=== PATIENT | female | born 1950 | race Caucasian/White ===

== ENCOUNTER 2020-07-01 11:19 | Outpatient (CLI) | payer MEDICARE, OTHER, SELFPAY ==
--- NOTE | 2020-07-01 11:26 | MM_ITS ---
WS: [id number] BILATERAL DIGITAL SCREENING MAMMOGRAPHY WITH CAD CLINICAL INFORMATION: SCREENING HISTORY: Screening mammogram. No current complaints. COMPARISON: TECHNIQUE: Bilateral CC and MLO views. FINDINGS: The breasts are composed of heterogeneous fibroglandular density tissue, which can limit the detectio n of small underlying mass lesions. No suspicious mass, asymmetry, calcifications, or architectural d istortion. No evidence of malignancy. 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 Bilateral vascular and punctate calcifications. MM/[place] [id number] IMPRESSION: BI-RADS: 2-Benign FOLLOW UP: 1 Year Follow-up Recommend return to annual screening mammography.
== END 2020-07-01 11:20 | disposition home or self-care (01) ==
LOC: RADSHAW 11:24
PROVIDERS: PCP Family Medicine; Visit Provider Family Medicine
DX: Z12.31 Encounter for screening mammogram for malignant neoplasm of breast (principal)
CPT/HCPCS: 77067

== ENCOUNTER 2020-07-05 07:50 | Outpatient (CLI) | payer MEDICARE, OTHER, SELFPAY ==
--- NOTE | 2020-07-05 08:00 | USCV_ITS ---
Dea Shetty Age: 69 Gender: F : 1950 Exam Date: 07/05/2020 08:08 Ordering Phys: Miquel Cespedes MD Technologist: Mayela Lozano Exam Location: [facility] [place] Indication: SOB BP: 140 / 70 HR: 77 Rhythm: Sinus Technical Quality: Adequate MEASUREMENTS (Male / Female) Normal Values 2D ECHO LV Diastolic Diameter PLAX 4.1 cm 4.2 - 5.9 / 3.9 - 5.3 cm LV Systolic Diameter PLAX 2.6 cm LV Chamber Size 4.2 cm IVS Diastolic Thickness 0.9 cm 0.6 - 1.0 / 0.6 - 0.9 cm IVS Systolic Thickness 1.2 cm LVPW Diastolic Thickness 0.9 cm 0.6 - 1.0 / 0.6 - 0.9 cm LVPW Systolic Thickness 1.1 cm RV Chamber Size 2.1 cm LVOT Diameter 2.0 cm LV Ejection Fraction 2D Teich 67.2 % LV Ejection Fraction MOD 2C 62.0 % LV Ejection Fraction 2C AL 63.9 % LA Diameter 2.9 cm LA Width 2.8 cm LA Height 2.4 cm RA Width 2.7 cm RA Height 3.0 cm Aorta at Sinotubular Diameter 2.9 cm M-MODE LV Diastolic Diameter MM 4.2 cm 4.2 - 5.9 / 3.9 - 5.3 cm LV Systolic Diameter MM 2.7 cm LV Ejection Fraction MM Teich 66.1 % IVS Diastolic Thickness MM 0.6 cm 0.6 - 1.0 / 0.6 - 0.9 cm IVS Systolic Thickness MM 0.9 cm LVPW Diastolic Thickness MM 0.9 cm 0.6 - 1.0 / 0.6 - 0.9 cm LVPW Systolic Thickness MM 1.1 cm RV Diastolic Diameter MM 1.3 cm Aortic Annulus Diameter 2.0 cm LA Ao Ratio MM 1.5 MV E Point Septal Separation 0.4 cm DOPPLER AV Peak Velocity 103.0 cm/s LVOT Peak Velocity 78.0 cm/s AV Area Cont Eq vti 2.4 cm squared AV Area Cont Eq pk 2.3 cm squared MV Area PHT 3.7 cm squared Mitral E to A Ratio 0.8 MV E' Velocity 7.0 cm/s Mitral E to MV E' Ratio 11.9 Mitral E to LV E' Lateral Ratio 12.0 Mitral E to LV E' Septal Ratio 11.9 TR Peak Velocity 52.0 cm/s TR Peak Gradient 1.1 mmHg TR Mean Velocity 207.0 cm/s TR Mean Gradient 18.3 mmHg TR Velocity Time Integral 77.6 cm Right Atrial Pressure 3.0 mmHg Pulmonary Artery Systolic Pressu 4.1 mmHg PV Peak Velocity 53.0 cm/s RV Acceleration Time 0.1 s RV Ejection Time 0.3 s RV AcT/ET 0.3 FINDINGS Left Ventricle Normal left ventricular size, systolic function and wall thickness, with no regional wall motion abnormalities. Normal left ventricular wall thickness. Grade 1 diastolic dysfunction is present. Right Ventricle The right ventricle is normal in size and function. Right Atrium The right atrium is normal in size. Left Atrium The left atrium is normal in size. Mitral Valve Structurally normal mitral valve without significant stenosis or prolapse. There is no mitral regurgitation. Aortic Valve Structurally normal aortic valve without significant sclerosis or stenosis. There is no aortic regurgitation. Tricuspid Valve Structurally normal tricuspid valve without significant stenosis or regurgitation. Insufficient TR jet to calculate RVSP. RA pressure is 5 mmHg. Pulmonic Valve Structurally normal pulmonic valve without significant stenosis. There is no pulmonic regurgitation. Pericardium Normal pericardium without effusion. Aorta Normal ascending aorta dimension. CONCLUSIONS Normal systolic function with EF of 55 to 60%. Grade 1 diastolic dysfunction is present. Jasbir Monet MD (Electronically Signed) Final Date: 05 July 2020 11:46 S
== END 2020-07-05 07:51 | disposition home or self-care (01) ==
PROVIDERS: PCP Family Medicine; Visit Provider Internal Medicine Critical Care Medicine
DX: R06.02 Shortness of breath (principal); I51.81 Takotsubo syndrome
CPT/HCPCS: 93306

== ENCOUNTER 2021-05-19 08:53 | Outpatient (CLI) | payer MEDICARE, SELFPAY ==
[2021-05-19 08:57] VITALS: BP 150/72; PULSE 70; RESP 18; TEMP 36.8; O2SAT 91; BMI 24.0
--- NOTE | 2021-05-19 09:02 | A.OFFVIS_ITS ---
Patient Information Referred by: 70-year-old female who had a positive Covid test in outside facility she has a history of COPD. She is not currently on any oxygen and she is not requiring extra oxygen at this time. She is mildly symptomatic. On exam chest clear heart regular. Patient is maintaining sats in the 90 to 92% on the monitor at the bedside. Discussed risk benefits alternatives with the patient she wishes to proceed. Monoclonal antibody infusion ordered patient tolerated well. Discharged home in good condition Symptom onset date: 05/11/21 COVID 19 common symptoms: positive fever(s), chills, cough, non-productive cough and dyspnea COVID 19 other sytmptoms: negative requiring oxygen Severity: mild Treatment prior to arrival: acetaminophen and ibuprofen OZH COVID test results: No Data to Display Criteria/Plan Inclusion/Exclusion Criteria lkhlkh weight >/= 40kg and + direct test </= 10 days ago age >/= 65 and age >/= 55 and has COPD/lung diease not requiring hospitalization, not requiring oxygen (if not chronically on oxygen) and no increase oxygen requirement (if chronically on oxygen) Patient education patient/family/caregiver received/reviewed fact sheet, Emergency Use Author ization/unapproved drug status discussed with patient/family/caregiver, alternatives to this treatment discussed with patient/family/caregiver, risks and benefits of medication reviewed with patient/family/caregiver, patient/family/caregiver given opportunity for questions, which were answered and patient consents to receiving Monoclonal Antibody Treatment Plan for treatment Meets criteria for Monoclonal Antibody infusion Ordering Monoclonal Antibody infusion for today
--- NOTE | 2021-05-19 11:08 | PC.NURSE ---
patient is resting, no acute distress noted at this time.
[2021-05-19 12:18] VITALS: BP 149/81; PULSE 70; RESP 18; TEMP 36.9; O2SAT 90
--- NOTE | 2021-05-19 12:19 | PC.NURSE ---
patient stated felt better, no acute distress noted.
== END 2021-05-19 12:19 | disposition home or self-care (01) ==
LOC: ER 08:56
PROVIDERS: PCP Family Medicine; Visit Provider Family Medicine
DX: U07.1 COVID-19 (principal); J44.9 Chronic obstructive pulmonary disease, unspecified
CPT/HCPCS: 96365

== ENCOUNTER 2021-06-22 08:47 | Emergency (ER) | payer MEDICARE, SELFPAY ==
[2021-06-22 08:48] VITALS: BP 187/93; PULSE 102; RESP 16; TEMP 36.6; O2SAT 100; BMI 20.5
--- NOTE | 2021-06-22 09:25 | ECG_ITS ---
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 Measurements Intervals [place] Rate: 97 P: 86 [place]: 147 QRS: 81 QRSD: 98 T: 67 QT: 370 QTc: 472 Interpretive Statements SINUS RHYTHM POSSIBLE LEFT ATRIAL ENLARGEMENT [-0.1mV P WAVE IN V1/V2] No previous ECG available for comparison Electronically Signed On 06-23-2021 14:46:46 CDT by Celestine Grace M.D. [id number]
--- NOTE | 2021-06-22 09:25 | CT_ITS ---
WS: [id number] CT HEAD TECHNIQUE: Noncontrast CT of the head obtained from the skullbase to the vertex. CLINICAL INFORMATION: confusion COMPARISON: MRI 2018 DLP: 814.[address] scans at [facility] use at least one of these dose optimization techniques: automat ed exposure control; mA and/or kV adjustment per patient size (includes targeted exams where dose is matched to clinical indication); or iterative reconstruction. FINDINGS: No evidence of intracranial hemorrhage or mass effect. Ventricular system and basal cisterns are arora nt. Mild small vessel changes with mild to moderate parenchymal volume loss. No extra-axial fluid col lections. No evidence of mass or mass effect. Normal boyer-white differentiation. Paranasal sinuses and mastoid air cells are well aerated. Trace fluid in the sphenoid sinus. .Normal visualized soft tissues. CT/CT head wo con* [id number] IMPRESSION: 1. No evidence of intracranial hemorrhage or mass effect. 2. Mild small vessel changes with mild/moderate parenchymal volume loss. 3. Trace fluid in the sphenoid sinus. 4. No acute intracranial findings.
--- NOTE | 2021-06-22 09:26 | ED_ITS ---
Documented by User: KEELY Rome 06/22/21 16:51 HPI - Psych General: Chief Complaint: Psychiatric Symptoms Stated Complaint: psych eval/ paranoia Time Seen by Provider: 06/22/21 09:05 History of Present Illness: HPI Narrative: Patient is a 70-year-old female comes to the ED with psych eval and paranoia. Patient lives at home alone and states that she has 2 neighbors that are drug dealers and they are spying on her. She states that they have tapped into her iPad and cell phone. She also reports that there is been a van that was following her yesterday. She did not have any sleep last night. I talked to patient's son which was her preferred contact next of kin. His name is Rick Shetty and I asked him some questions about his mother's mental status. The son said that how patient is acting over the last 24 hours is not typical for her. He says she thinks something is wrong with her and she has no history of any psychosis in the past. Patient did get hospitalized back in the early after her for depression. Associated symptoms: Reports delusions Review of Systems Const: Denies: fever(s), chills or fatigue Eyes: Denies: change in vision or eye discomfort ENMT: Denies: throat pain, odynophagia, nasal discharge or nasal congestion Card: Denies: chest pain, palpitations, edema, swelling of feet/ankles, dyspnea on exertion or orthopnea Resp: Denies: dyspnea, productive cough or non-productive cough GI: Denies: abdominal pain, nausea, vomiting, diarrhea, constipation or hematochezia : Denies: flank pain, dysuria or hematuria Musc: Denies: neck pain, back pain or extremity swelling Skin/Breast: Denies: rash or new lesions Neuro: Reports: confusion; Denies: headache(s), numbness in extremities or weakness in extremities Psych: Reports: sleeping less and paranoia PFSH ED PFSH: Medical History Chronic cystitis Mixed axonal-demyelinating neuropathy Thrombocytosis Surgical History H/O oral surgery H/O wrist surgery Family History Father Stroke Heart disease Hypercholesterolemia Hypertension Mother Psychiatric illness Diabetes Heart disease Social History Smoking and tobacco status: never smoked Second hand smoke exposure: Yes Alcohol intake: never Lives independently: Yes Household members: none Marital status: / Current occupational status: unemployed History of recent travel: No Current gender identity: Female Physical Exam Const: COMMON NORMALS: no acute distress, patient oriented x3, healthy appearing and alert GENERAL APPEARANCE: cooperative and comfortable HENMT: COMMON NORMALS: normocephalic HEAD & SCALP: normocephalic MOUTH: Normal oral and palatal mucosa present THROAT: posterior oropharynx normal and uvula midline Neck/C-Spine: COMMON NORMALS: supple GENERAL: Yes normal visual inspection Resp: COMMON NORMALS: normal respiratory effort, No retractions, No use of accessory muscles and clear to auscultation bilaterally AUSCULTATION: clear to auscultation bilaterally Cardio: COMMON NORMALS: regular rate, regular rhythm, S1 normal heart sound present, S2 normal heart sound present, No gallops present (Cardio), No clicks present (Cardio), No murmurs present (Cardio) and Peripheral pulses 2+ throughout RATE: regular rate RHYTHM: regular rhythm HEART SOUNDS: S1 normal heart sound present and S2 normal heart sound present PERIPHERAL PULSES: Peripheral pulses 2+ throughout GI: COMMON NORMALS: Normal to inspection, nondistended, normoactive bowel sounds present, Soft to palpation, non-tender and no masses PALPATION: Yes Soft to palpation : COMMON NORMALS: Yes no CVA tenderness BLADDER/KIDNEY EXAM: Yes no CVA tenderness Back/Pelvis: COMMON NORMALS: no CVA tenderness Extremity: COMMON NORMALS: normal to inspection Neuro: COMMON NORMALS: patient oriented x3 and moves all extremities SENSORIUM/ORIENTATION: Yes alert Psych: COMMON NORMALS: speech normal APPEARANCE: Yes grossly normal ATTITUDE: Yes calm ACTIVITY/MOTOR BEHAVIOR: Yes appropriate eye contact SPEECH: Yes normal speech MOOD & AFFECT: Yes irritable (appears a little midly irritated) THOUGHT PROCESS: confused and Illogical thought process present THOUGHT CONTENT: No Suicidality present, No Homicidality present and Yes delusions Delusional thought content details: paranoid (Neighbors are spying on her and tapping phone and computer.) ATTENTION/CONCENTRATION: Yes attention grossly intact and Yes concentration grossly intact MEMORY/COGNITION: Yes memory grossly intact and Yes cognition grossly intact INSIGHT: Limited insight present (Psych) JUDGEMENT: Limited judgement present (Psych) Skin: GENERAL SKIN EXAM: dry skin Course ED course: Patient was accepted at [facility] psych unit. The admitting doctor there is Dr. Flores. Vital Signs: Vital signs: Vital Signs Temperature 97.8 F 06/22/21 08:48 Pulse Rate 102 H 06/22/21 08:48 Respiratory Rate 16 06/22/21 08:48 Blood Pressure 187/93 06/22/21 08:48 Pulse Oximetry 100 06/22/21 08:48 MDM - Psych MDM Narrative: Medical decision making narrative: Patient is a 70-year-old female comes to the ED with paranoia and confusion. Patient thinks that her neighbors are drug dealers and that they are spying on her and tapping her phone and computer. She also reports a van has been following her and watching her as well. Denies any physical symptoms. All prescreening labs performed and patient did have a sodium of 127 but she was given a bolus of 1 L of IV fluids while here in the ED. CT of head showed no acute findings. UA did not show any signs of UTI. Urine drug screen negative. Patient was accepted at [facility] facility. In [place]. The admitting doctor was Dr. Flores. Lab Data: Attestation: I reviewed the patient's lab results. Labs: Lab Results 06/22/21 06/22/21 06/22/21 Range/Units 10:50 10:50 10:50 WBC 8.4 (4.0-10.0) 10^3/ uL RBC 4.18 (4.1-5.3) 10^6/u L Hgb 12.7 (11.5-15.3) g/dL Hct 38.8 (37.0-47.0) % MCV 92.8 (81-99) fL MCH 30.4 (28.0-34.0) pg MCHC 32.7 (30.0-36.0) g/dL RDW 13.1 (12.1-15.1) % Plt Count 411 H (130-400) 10^3/c mm MPV 8.9 (7.4-10.4) fL Neut % (Auto) 73.7 % Lymph % (Auto) 15.3 % [place] % (Auto) 9.5 % Eos % (Auto) 0.5 % Baso % (Auto) 0.8 % Neut # (Auto) 6.17 (1.8-7.7) 10^3/u L Lymph # (Auto) 1.3 (0.8-4.8) 10^3/u L [place] # (Auto) 0.8 (0.2-0.9) 10^3/u L Eos # (Auto) 0.0 (0.0-0.8) 10^3/u L Baso # (Auto) 0.1 (0.0-0.1) 10^3/u L Nucleated RBC % (a uto) 0 % Nucleated RBCs # 0.0 /100WBC Sodium 127 L (136-145) mmol/L Potassium 4.0 (3.5-5.1) mmol/L Chloride 91 L (98-107) mmol/L Carbon Dioxide 25 (22-29) mmol/L Anion Gap 15.0 (5-19) BUN 11 (8-23) mg/dL Creatinine 0.7 (0.5-0.9) mg/dL GFR Calculation Not Reportable Glucose 115 (65-115) mg/dL Calculated Osmolal ity 264 L (285-295) mOsm/k g Calcium 9.6 (8.5-10.5) mg/dL Total Bilirubin 0.7 (0.15-1.2) mg/dL AST 19 (0-32) U/L ALT 14 (0-33) U/L Alkaline Phosphata se 62 (35-105) IU/L Total Protein 7.9 (6.6-8.7) g/dL Albumin 4.4 (3.5-5.2) g/dL Globulin 3.5 (1.3-4.6) g/dL TSH (0.27-4.20) uIU/ mL Urine Color (Yellow) Urine Appearance (CLEAR) Urine pH (5-7) Ur Specific Gravit y (1.005-1.030) Urine Protein (Negative) Urine Glucose (UA) (Normal) Urine Ketones (Negative) Urine Blood (Negative) Urine Nitrate (Negative) Urine Bilirubin (Negative) Prot Sulfosalicyli c Acd (Negative) Urine Urobilinogen (Negative) mg/dL Ur Leukocyte Rosemary ase (Negative) Urine RBC (0-2) /hpf Urine WBC (0-5) /hpf Ur Squamous Epith Cells (0-5) /hpf Amorphous Sediment Urine Bacteria (NONE) /hpf Salicylates < 0.3 L (3-10) mg/dL Urine Opiates Scre en (Negative) ng/mL Acetaminophen < 5.0 L (10-30) ug/mL Ur Barbiturates Sc reen (Negative) ng/mL Ur Phencyclidine S crn (Negative) ng/mL Ur Amphetamines Sc reen (Negative) ng/mL U Benzodiazepines Scrn (Negative) ng/mL Urine Cocaine Scre en (Negative) ng/mL U Marijuana (THC) Screen (Negative) ng/mL Ethyl Alcohol < 10 (0-10) mg/dL SARS-CoV-2 Ag (Rap id) Negative (Negative) 06/22/21 06/22/21 06/22/21 Range/Units 10:50 11:14 11:14 WBC (4.0-10.0) 10^3/ uL RBC (4.1-5.3) 10^6/u L Hgb (11.5-15.3) g/dL Hct (37.0-47.0) % MCV (81-99) fL MCH (28.0-34.0) pg MCHC (30.0-36.0) g/dL RDW (12.1-15.1) % Plt Count (130-400) 10^3/c mm MPV (7.4-10.4) fL Neut % (Auto) % Lymph % (Auto) % [place] % (Auto) % Eos % (Auto) % Baso % (Auto) % Neut # (Auto) (1.8-7.7) 10^3/u L Lymph # (Auto) (0.8-4.8) 10^3/u L [place] # (Auto) (0.2-0.9) 10^3/u L Eos # (Auto) (0.0-0.8) 10^3/u L Baso # (Auto) (0.0-0.1) 10^3/u L Nucleated RBC % (a uto) % Nucleated RBCs # /100WBC Sodium (136-145) mmol/L Potassium (3.5-5.1) mmol/L Chloride (98-107) mmol/L Carbon Dioxide (22-29) mmol/L Anion Gap (5-19) BUN (8-23) mg/dL Creatinine (0.5-0.9) mg/dL GFR Calculation Glucose (65-115) mg/dL Calculated Osmolal ity (285-295) mOsm/k g Calcium (8.5-10.5) mg/dL Total Bilirubin (0.15-1.2) mg/dL AST (0-32) U/L ALT (0-33) U/L Alkaline Phosphata se (35-105) IU/L Total Protein (6.6-8.7) g/dL Albumin (3.5-5.2) g/dL Globulin (1.3-4.6) g/dL TSH 2.82 (0.27-4.20) uIU/ mL Urine Color Yellow (Yellow) Urine Appearance Clear (CLEAR) Urine pH 8 H (5-7) Ur Specific Gravit y 1.010 (1.005-1.030) Urine Protein Neg (Negative) Urine Glucose (UA) Norm (Normal) Urine Ketones Negative (Negative) Urine Blood Neg (Negative) Urine Nitrate Negative (Negative) Urine Bilirubin Neg (Negative) Prot Sulfosalicyli c Acd Negative (Negative) Urine Urobilinogen Norm (Negative) mg/dL Ur Leukocyte Rosemary ase Negative (Negative) Urine RBC None (0-2) /hpf Urine WBC None (0-5) /hpf Ur Squamous Epith Cells 0-4 H (0-5) /hpf Amorphous Sediment Not Reportable Urine Bacteria Trace (NONE) /hpf Salicylates (3-10) mg/dL Urine Opiates Scre en Negative (Negative) ng/mL Acetaminophen (10-30) ug/mL Ur Barbiturates Sc reen Negative (Negative) ng/mL Ur Phencyclidine S crn Negative (Negative) ng/mL Ur Amphetamines Sc reen Negative (Negative) ng/mL U Benzodiazepines Scrn Negative (Negative) ng/mL Urine Cocaine Scre en Negative (Negative) ng/mL U Marijuana (THC) Screen Negative (Negative) ng/mL Ethyl Alcohol (0-10) mg/dL SARS-CoV-2 Ag (Rap id) (Negative) Imaging Data^: CT Head: Attestation: I personally reviewed and interpreted this imaging study as follows: Radiologist's impression: [facility] [address] [place] [address] CT Scan Report Signed Patient: Dea Shetty Unit #: [id number] : [id number] Age/Sex: 70 / F ADM Date: 06/22/21 Loc: ER Room/Bed: Attending Dr: Ordering Provider/Ordering MD: Juanjo Her Date of Service: 06/22/21 Procedure(s): CT head wo con* [id number] Accession Number(s): [id number] Report Number: [id number] WS: [id number] CT HEAD TECHNIQUE: Noncontrast CT of the head obtained from the skullbase to the rtex. CLINICAL INFORMATION: confusion COMPARISON: MRI 2018 DLP: 814.[address] scans at [facility] use at least one of these dose optimization techniques: automated exposure control; mA and/or kV adjustment per patient size (includes targeted exams where dose is matched to clinical indication); or iterative reconstruction. FINDINGS: No evidence of intracranial hemorrhage or mass effect. Ventricular system and basal cisterns are patent. Mild small vessel changes with mild to moderate parenchymal volume loss. No extra-axial fluid collections. No evidence of mass or mass effect. Normal boyer-white differentiation. Paranasal sinuses and mastoid air cells are well aerated. Trace fluid in the sphenoid sinus. .Normal visualized soft tissues. CT/CT head wo con* [id number] IMPRESSION: 1. No evidence of intracranial hemorrhage or mass effect. 2. Mild small vessel changes with mild/moderate parenchymal volume loss. 3. Trace fluid in the sphenoid sinus. 4. No acute intracranial findings. Dictated By: Toro Conte MD Signed By: Toro Conte MD Signed Date/Time: 06/22/21 1013 DD/ 1010 EKG Data^: EKG 1: Attestation: I personally reviewed and interpreted this EKG as follows: EKG interpretation date: 06/22/21 Interpretation: Normal sinus rhythm, 97 bpm, no ST segment elevation or depression seen. Discharge Plan Discharge Patient Disposition: [facility] Clinical Impression: Acute psychosis Condition: Stable Referrals: Matthew Barrientos MD [Primary Care Provider] - Coding Level of Care Code ED Service Station Manager for Chg Fwd Exam Comprehensive Documented by User: Germain Haro DO 06/24/21 07:47 HPI - Psych General: Chief Complaint: Psychiatric Symptoms Stated Complaint: psych eval/ paranoia Time Seen by Provider: 06/22/21 09:05 PFSH ED PFSH: Medical History Chronic cystitis Mixed axonal-demyelinating neuropathy Thrombocytosis Surgical History H/O oral surgery H/O wrist surgery Family History Father Stroke Heart disease Hypercholesterolemia Hypertension Mother Psychiatric illness Diabetes Heart disease Social History Smoking and tobacco status: never smoked Second hand smoke exposure: Yes Alcohol intake: never Lives independently: Yes Household members: none Marital status: / Current occupational status: unemployed History of recent travel: No Current gender identity: Female Course Vital Signs: Vital signs: Vital Signs Temperature 97.8 F 06/22/21 08:48 Pulse Rate 102 H 06/22/21 08:48 Respiratory Rate 16 06/22/21 08:48 Blood Pressure 187/93 06/22/21 08:48 Pulse Oximetry 100 06/22/21 08:48 MDM - Psych MDM Narrative: Medical decision making narrative: Reviewed case with Juanjo Her agree with assessment and plan Lab Data: Labs: Lab Results 06/22/21 06/22/21 06/22/21 Range/Units 10:50 10:50 10:50 WBC 8.4 (4.0-10.0) 10^3/ uL RBC 4.18 (4.1-5.3) 10^6/u L Hgb 12.7 (11.5-15.3) g/dL Hct 38.8 (37.0-47.0) % MCV 92.8 (81-99) fL MCH 30.4 (28.0-34.0) pg MCHC 32.7 (30.0-36.0) g/dL RDW 13.1 (12.1-15.1) % Plt Count 411 H (130-400) 10^3/c mm MPV 8.9 (7.4-10.4) fL Neut % (Auto) 73.7 % Lymph % (Auto) 15.3 % [place] % (Auto) 9.5 % Eos % (Auto) 0.5 % Baso % (Auto) 0.8 % Neut # (Auto) 6.17 (1.8-7.7) 10^3/u L Lymph # (Auto) 1.3 (0.8-4.8) 10^3/u L [place] # (Auto) 0.8 (0.2-0.9) 10^3/u L Eos # (Auto) 0.0 (0.0-0.8) 10^3/u L Baso # (Auto) 0.1 (0.0-0.1) 10^3/u L Nucleated RBC % (a uto) 0 % Nucleated RBCs # 0.0 /100WBC Sodium 127 L (136-145) mmol/L Potassium 4.0 (3.5-5.1) mmol/L Chloride 91 L (98-107) mmol/L Carbon Dioxide 25 (22-29) mmol/L Anion Gap 15.0 (5-19) BUN 11 (8-23) mg/dL Creatinine 0.7 (0.5-0.9) mg/dL GFR Calculation Not Reportable Glucose 115 (65-115) mg/dL Calculated Osmolal ity 264 L (285-295) mOsm/k g Calcium 9.6 (8.5-10.5) mg/dL Total Bilirubin 0.7 (0.15-1.2) mg/dL AST 19 (0-32) U/L ALT 14 (0-33) U/L Alkaline Phosphata se 62 (35-105) IU/L Total Protein 7.9 (6.6-8.7) g/dL Albumin 4.4 (3.5-5.2) g/dL Globulin 3.5 (1.3-4.6) g/dL TSH (0.27-4.20) uIU/ mL Urine Color (Yellow) Urine Appearance (CLEAR) Urine pH (5-7) Ur Specific Gravit y (1.005-1.030) Urine Protein (Negative) Urine Glucose (UA) (Normal) Urine Ketones (Negative) Urine Blood (Negative) Urine Nitrate (Negative) Urine Bilirubin (Negative) Prot Sulfosalicyli c Acd (Negative) Urine Urobilinogen (Negative) mg/dL Ur Leukocyte Rosemary ase (Negative) Urine RBC (0-2) /hpf Urine WBC (0-5) /hpf Ur Squamous Epith Cells (0-5) /hpf Amorphous Sediment Urine Bacteria (NONE) /hpf Salicylates < 0.3 L (3-10) mg/dL Urine Opiates Scre en (Negative) ng/mL Acetaminophen < 5.0 L (10-30) ug/mL Ur Barbiturates Sc reen (Negative) ng/mL Ur Phencyclidine S crn (Negative) ng/mL Ur Amphetamines Sc reen (Negative) ng/mL U Benzodiazepines Scrn (Negative) ng/mL Urine Cocaine Scre en (Negative) ng/mL U Marijuana (THC) Screen (Negative) ng/mL Ethyl Alcohol < 10 (0-10) mg/dL SARS-CoV-2 Ag (Rap id) Negative (Negative) 06/22/21 06/22/21 06/22/21 Range/Units 10:50 11:14 11:14 WBC (4.0-10.0) 10^3/ uL RBC (4.1-5.3) 10^6/u L Hgb (11.5-15.3) g/dL Hct (37.0-47.0) % MCV (81-99) fL MCH (28.0-34.0) pg MCHC (30.0-36.0) g/dL RDW (12.1-15.1) % Plt Count (130-400) 10^3/c mm MPV (7.4-10.4) fL Neut % (Auto) % Lymph % (Auto) % [place] % (Auto) % Eos % (Auto) % Baso % (Auto) % Neut # (Auto) (1.8-7.7) 10^3/u L Lymph # (Auto) (0.8-4.8) 10^3/u L [place] # (Auto) (0.2-0.9) 10^3/u L Eos # (Auto) (0.0-0.8) 10^3/u L Baso # (Auto) (0.0-0.1) 10^3/u L Nucleated RBC % (a uto) % Nucleated RBCs # /100WBC Sodium (136-145) mmol/L Potassium (3.5-5.1) mmol/L Chloride (98-107) mmol/L Carbon Dioxide (22-29) mmol/L Anion Gap (5-19) BUN (8-23) mg/dL Creatinine (0.5-0.9) mg/dL GFR Calculation Glucose (65-115) mg/dL Calculated Osmolal ity (285-295) mOsm/k g Calcium (8.5-10.5) mg/dL Total Bilirubin (0.15-1.2) mg/dL AST (0-32) U/L ALT (0-33) U/L Alkaline Phosphata se (35-105) IU/L Total Protein (6.6-8.7) g/dL Albumin (3.5-5.2) g/dL Globulin (1.3-4.6) g/dL TSH 2.82 (0.27-4.20) uIU/ mL Urine Color Yellow (Yellow) Urine Appearance Clear (CLEAR) Urine pH 8 H (5-7) Ur Specific Gravit y 1.010 (1.005-1.030) Urine Protein Neg (Negative) Urine Glucose (UA) Norm (Normal) Urine Ketones Negative (Negative) Urine Blood Neg (Negative) Urine Nitrate Negative (Negative) Urine Bilirubin Neg (Negative) Prot Sulfosalicyli c Acd Negative (Negative) Urine Urobilinogen Norm (Negative) mg/dL Ur Leukocyte Rosemary ase Negative (Negative) Urine RBC None (0-2) /hpf Urine WBC None (0-5) /hpf Ur Squamous Epith Cells 0-4 H (0-5) /hpf Amorphous Sediment Not Reportable Urine Bacteria Trace (NONE) /hpf Salicylates (3-10) mg/dL Urine Opiates Scre en Negative (Negative) ng/mL Acetaminophen (10-30) ug/mL Ur Barbiturates Sc reen Negative (Negative) ng/mL Ur Phencyclidine S crn Negative (Negative) ng/mL Ur Amphetamines Sc reen Negative (Negative) ng/mL U Benzodiazepines Scrn Negative (Negative) ng/mL Urine Cocaine Scre en Negative (Negative) ng/mL U Marijuana (THC) Screen Negative (Negative) ng/mL Ethyl Alcohol (0-10) mg/dL SARS-CoV-2 Ag (Rap id) (Negative) Discharge Plan Discharge Patient Disposition: Xfer Psychiatric Hosp Clinical Impression: Acute psychosis Condition: Stable Referrals: Matthew Barrientos MD [Primary Care Provider] - Coding Level of Care Code ED Service Station Manager for Chg Fwd Exam Comprehensive
--- NOTE | 2021-06-22 10:22 | PC.PHAR ---
pt unable to verify medications-medications entered are what shows on ext med history has been filled recently
[2021-06-22 11:05] LABS: Basophils # 0.1 10^3/uL (0.0-0.1); Basophils % 0.8 %; Eosinophils % 0.5 %; Hematocrit 38.8 % (37.0-47.0); Hemoglobin 12.7 g/dL (11.5-15.3); Lymphocytes # 1.3 10^3/uL (0.8-4.8); Lymphocytes % 15.3 %; Mean Corpuscular HGB Conc 32.7 g/dL (30.0-36.0); Mean Corpuscular Hemoglobin 30.4 pg (28.0-34.0); Mean Corpuscular Volume 92.8 fL (81-99); Mean Platelet Volume 8.9 fL (7.4-10.4); Monocytes # 0.8 10^3/uL (0.2-0.9); Monocytes % 9.5 %; Neutrophils # 6.17 10^3/uL (1.8-7.7); Neutrophils % 73.7 %; Nucleated Red Blood Cells % 0 %; Platelet Count 411 10^3/cmm (130-400); Red Blood Count 4.18 10^6/uL (4.1-5.3); Red Cell Distribution Width 13.1 % (12.1-15.1); White Blood Count 8.4 10^3/uL (4.0-10.0)
[2021-06-22 11:20] LABS: Alanine Aminotransferase 14 U/L (0-33); Albumin Level 4.4 g/dL (3.5-5.2); Alkaline Phosphatase 62 IU/L (35-105); Aspartate Amino Transferase 19 U/L (0-32); Blood Urea Nitrogen 11 mg/dL (8-23); Calcium 9.6 mg/dL (8.5-10.5); Carbon Dioxide 25 mmol/L (22-29); Chloride 91 mmol/L (98-107); Globulin 3.5 g/dL (1.3-4.6); Glucose 115 mg/dL (65-115); Osmolality Calculated 264 mOsm/kg (285-295); Sodium 127 mmol/L (136-145); Total Bilirubin 0.7 mg/dL (0.15-1.2); Total Protein 7.9 g/dL (6.6-8.7)
[2021-06-22 11:24] LABS: Acetaminophen < 5.0 ug/mL (10-30); Alcohol Level < 10 mg/dL (0-10); Salicylate < 0.3 mg/dL (3-10)
[2021-06-22 11:42] LABS: SARS Covid-2 Antigen Negative (Negative)
[2021-06-22 11:43] LABS: Add Urine Culture? No; Bacteria Urine TRACE /hpf; Bilirubin Urine Neg (Negative); Blood Urine Neg (Negative); Glucose Urine UA Norm (Normal); Ketones Urine Negative (Negative); Leukocyte Esterase Urine Negative (Negative); Nitrate Urine Negative (Negative); Protein Urine Neg (Negative); Squamous Epithelial Cell Urine 0-4 /hpf (0-5); Sulfosalicylic Acid Urine Negative (Negative); Urine Appearance Clear (CLEAR); Urine Color Yellow (Yellow); Urobilinogen Urine Norm (Negative); pH Urine 8 (5-7)
[2021-06-22 12:32] LABS: Thyroid Stimulating Hormone 2.82 uIU/mL (0.27-4.20)
[2021-06-22] MEDS: sodium chloride 0.9% 1,000 ML 999 ML IV (12:48)
[2021-06-22 13:35] LABS: Amphetamines Screen Urine Negative (Negative); Barbiturates Screen Urine Negative (Negative); Benzodiazepines Screen Urine Negative (Negative); Cocaine Screen Urine Negative (Negative); Opiate Screen Urine Negative (Negative); PCP Screen Urine Negative (Negative); THC Screen Urine Negative (Negative)
[2021-06-22] MEDS: SUMAtriptan 25 mg Tablet 50 MG PO (14:12)
[2021-06-22] MEDS: LORazepam 0.5 mg Tablet PO (15:27)
--- NOTE | 2021-06-22 16:47 | PC.NURSE ---
pt removed IV line herself, then proceeded to rip the IV tubing in half spilling her entire bag of fluids on the floor. when nurse asked pt why she did that pt stated you people are trying to do me in with this stuff. you all just want to do me in. small bruise noted at IV site, catheter in tact, coban and cotton applied to removal site.
== END 2021-06-22 16:51 ==
PROVIDERS: Family Medicine; Emergency Provider Physician Assistant; PCP Family Medicine
DX: F23 Brief psychotic disorder (principal)
CPT/HCPCS: 70450; 80053; 80306; 80307; 81001; 84443; 85025; 87426; 93005; 99285; J7030

== ENCOUNTER 2022-04-13 15:08 | Outpatient (CLI) | payer MEDICARE, SELFPAY ==
--- NOTE | 2022-04-13 15:12 | XR_ITS ---
WS: [id number] DEXA (DUAL ENERGY X-RAY ABSORPTIOMETRY) Bone mineral density was performed using a Zazom machine. HISTORY: POSTMENOPAUSAL COMPARISON: 11/10/2015 Lumbar spine BMD (L1-L4): 1.029 g/cm2 T score: -1.3 Z score: 0.7 Total hip BMD: Left: 0.648 g/cm2. T score: -2.9 Z score: -1.0 Right: 0.782 g/cm2. T score: -1.8 Z score: 0.0 10 year probability of a major osteoporotic fracture is 43%. Compared to the prior study from 11/10/2015. Lumbar spine bone mineral density has decreased by 5.6%. Bilateral hips bone mineral density has decreased by 12.5%. XR/XR DEXA axial skeleton* [id number] IMPRESSION: OSTEOPOROSIS based upon the WHO classification for females. Significant decreas e in bone mineral density within the hips and lumbar spine since the prior stud y.
--- NOTE | 2022-04-13 15:15 | MM_ITS ---
WS: [id number] BILATERAL 3D TOMOSYNTHESIS DIGITAL SCREENING MAMMOGRAPHY WITH CAD CLINICAL INFORMATION: SCREENING HISTORY: Screening mammogram. No current complaints. COMPARISON: July 01, 2020 TECHNIQUE: Bilateral CC and MLO views. FINDINGS: Scattered fibroglandular densities bilaterally. Stable coarse cluster calcifications upper outer LEFT breast. Bilateral vascular and punctate calcifications. Stable nodular densities upper outer LEFT br east stable since 2016. No suspicious focal mass, asymmetry, calcifications, or architectural distort ion. No evidence of malignancy. MM/[id number] IMPRESSION: BI-RADS: 2-Benign FOLLOW UP: 1 Year Follow-up Recommend return to annual screening mammography.
== END 2022-04-13 15:09 | disposition home or self-care (01) ==
LOC: RAD 15:10
PROVIDERS: PCP Family Medicine; Visit Provider Family Medicine
DX: Z78.0 Asymptomatic menopausal state (principal); Z12.31 Encounter for screening mammogram for malignant neoplasm of breast; M81.0 Age-related osteoporosis without current pathological fracture
CPT/HCPCS: 77063; 77067; 77080

== ENCOUNTER → 2022-08-10 12:26 | Day surgery (SDC) | payer MEDICARE, SELFPAY ==
[2022-08-10 13:04] VITALS: BP 174/84; PULSE 107; RESP 16; TEMP 36.7; O2SAT 95
[2022-08-10 13:09] VITALS: BMI 20.9
== END ==
PROVIDERS: PCP Family Medicine; Visit Provider Family Medicine
DX: K59.00 Constipation, unspecified (principal)
CPT/HCPCS: 45915; 99212

== ENCOUNTER → 2022-12-18 16:30 | Outpatient (BNVA) | payer MEDICARE, SELFPAY | PROVIDERS: PCP Family Medicine; Visit Provider Internal Medicine Pulmonary Disease | DX: R06.02 Shortness of breath (principal); Z77.120 Contact with and (suspected) exposure to mold (toxic); J45.909 Unspecified asthma, uncomplicated; J44.9 Chronic obstructive pulmonary disease, unspecified; Z87.09 Personal history of other diseases of the respiratory system | CPT/HCPCS: 36415; 82785; 85025; 86003; 86331; 86606; 86609; 99214 ==

== ENCOUNTER 2023-01-09 13:03 | Outpatient (CLI) | payer MEDICARE, SELFPAY ==
[2023-01-09 13:25] VITALS: PULSE 99; RESP 18; O2SAT 98
[2023-01-09 13:30] VITALS: PULSE 100
== END 2023-01-09 13:04 | disposition home or self-care (01) ==
LOC: RT 13:03
PROVIDERS: PCP Family Medicine; Visit Provider Internal Medicine Pulmonary Disease
DX: J44.9 Chronic obstructive pulmonary disease, unspecified (principal); R06.02 Shortness of breath; J45.909 Unspecified asthma, uncomplicated
CPT/HCPCS: 94060; 94618; 94726; 94729; J7613

== ENCOUNTER 2023-01-17 13:40 | Outpatient (CLI) | payer MEDICARE, SELFPAY ==
--- NOTE | 2023-01-17 15:13 | CT_ITS ---
WS: [id number] CT CHEST TECHNIQUE: High-resolution Noncontrast CT of the chest with coronal and sagittal reformatted images. Prone imaging CLINICAL INFORMATION: INTERSTITIAL LUNG DISEASE COMPARISON: None. DLP: [address] scans at [facility] use at least one of these dose optimization techniques: automated e xposure control; mA and/or kV adjustment per patient size (includes targeted exams where dose is matc hed to clinical indication); or iterative reconstruction. FINDINGS: Calcified spiculated hilar mass RIGHT upper lobe along the fissure measuring 2.3 x 1.9 CM. Additional spiculated calcified RIGHT lower lobe infrahilar mass measuring 1.4 x 1.6 cm. Recommend co rrelation with history of granulomatous disease. Mild air trapping on the expiratory imaging. Ovoid subpleural nodule RIGHT lower lobe along the diaph ragm measuring 9 mm. Scattered calcified granulomas. Chronic emphysematous changes. Perihilar bronchi ectasis RIGHT greater than LEFT. Subsegmental atelectasis in the lung bases. No significant honeycomb ing. Normal caliber thoracic aorta. Aortic calcification. Coronary calcification. Calcified anterior media stinal and hilar lymph nodes lymph nodes. Calcified subcarinal lymph nodes. No axillary lymphadenopat hy. Adrenal glands are normal. Small esophageal hiatal hernia. Thoracic curve and kyphosis. CT/CT chest wo con [id number] IMPRESSION: 1. Calcified granulomatous disease with calcified mediastinal and hilar lymph nodes. Scattered calcified granulomas. 2. Calcified RIGHT hilar spiculated nodular mass RIGHT upper lobe and RIGHT lo wer lobe measuring approximately 2 cm described above. Recommend correlation wi th history of granulomatous disease. 3. Noncalcified nodule RIGHT lower lobe along the diaphragm measuring 9 mm. Re commend 6 month follow-up. 4. Moderate chronic emphysematous changes. No significant honeycombing. 5. Bilateral perihilar traction bronchiectasis RIGHT greater than LEFT.
== END 2023-01-17 13:41 | disposition home or self-care (01) ==
PROVIDERS: PCP Family Medicine; Visit Provider Internal Medicine Pulmonary Disease
DX: Z12.2 Encounter for screening for malignant neoplasm of respiratory organs (principal); J44.9 Chronic obstructive pulmonary disease, unspecified; R06.02 Shortness of breath; Z77.120 Contact with and (suspected) exposure to mold (toxic); J45.909 Unspecified asthma, uncomplicated; R91.1 Solitary pulmonary nodule; D71 Functional disorders of polymorphonuclear neutrophils
CPT/HCPCS: 71250

== ENCOUNTER → 2023-03-26 11:57 | Outpatient (BNVA) | payer MEDICARE, SELFPAY | PROVIDERS: PCP Family Medicine; Visit Provider Internal Medicine Pulmonary Disease | DX: J44.9 Chronic obstructive pulmonary disease, unspecified (principal); R93.89 Abnormal findings on diagnostic imaging of other specified body structures; Z77.120 Contact with and (suspected) exposure to mold (toxic); J45.909 Unspecified asthma, uncomplicated; J82.83 Eosinophilic asthma | CPT/HCPCS: 99214 ==

== ENCOUNTER 2023-03-29 15:11 | Outpatient (CLI) | payer MEDICARE, SELFPAY | END 2023-03-29 15:12 | disposition home or self-care (01) | LOC: LAB 15:15 | PROVIDERS: PCP Family Medicine; Visit Provider Internal Medicine Pulmonary Disease | DX: J47.9 Bronchiectasis, uncomplicated (principal) | CPT/HCPCS: 87015; 87116; 87206; 87801 ==

== ENCOUNTER 2023-04-16 14:40 | Outpatient (CLI) | payer MEDICARE, SELFPAY ==
--- NOTE | 2023-04-16 15:00 | MM_ITS ---
WS: [id number] BILATERAL 3D TOMOSYNTHESIS DIGITAL SCREENING MAMMOGRAPHY WITH CAD CLINICAL INFORMATION: SCREENING HISTORY: Screening mammogram. No current complaints. COMPARISON: 2021 TECHNIQUE: Bilateral CC and MLO views. FINDINGS: The breasts are composed of heterogeneous fibroglandular density tissue, which can limit the detectio n of small underlying mass lesions. No suspicious mass, asymmetry, calcifications, or architectural d istortion. No evidence of malignancy. Stable coarse cluster calcifications upper outer LEFT breast. B ilateral vascular and punctate calcifications. MM/[id number] IMPRESSION: BI-RADS: 2-Benign FOLLOW UP: 1 Year Follow-up Recommend return to annual screening mammography.
== END 2023-04-16 14:41 | disposition home or self-care (01) ==
LOC: RAD 14:43
PROVIDERS: PCP Family Medicine; Visit Provider Family Medicine
DX: Z12.31 Encounter for screening mammogram for malignant neoplasm of breast (principal)
CPT/HCPCS: 77063; 77067

== ENCOUNTER → 2023-07-26 09:27 | Outpatient (BNVA) | payer MEDICARE, SELFPAY | PROVIDERS: PCP Family Medicine; Visit Provider Internal Medicine Pulmonary Disease | DX: Z77.120 Contact with and (suspected) exposure to mold (toxic); J47.9 Bronchiectasis, uncomplicated; J82.83 Eosinophilic asthma | CPT/HCPCS: 99214 ==

== ENCOUNTER 2023-09-17 14:21 | Outpatient (CLI) | payer MEDICARE, SELFPAY ==
--- NOTE | 2023-09-17 14:30 | CTR_ITS ---
PROCEDURE INFORMATION: Exam: CT Chest Without Contrast; Diagnostic Exam date and time: 09/17/2023 2:53 PM Age: 72 years old Clinical indication: Condition or disease; Lung condition and disease; Pulmonary nodule, solitary; Additional info: 6 month f/u TECHNIQUE: Imaging protocol: Diagnostic computed tomography of the chest without contrast. Radiation optimization: All CT scans at this facility use at least one of these dose optimization techniques: automated exposure control; mA and/or kV adjustment per patient size (includes targeted exams where dose is matched to clinical indication); or iterative reconstruction. REPORTING DATA: Count of CT and Cardiac NM exams in prior 12 months: This patient has received [address] and 0 known cardiac nuclear medicine studies in the 12 months prior to the current study. COMPARISON: CT chest wo con [id number] 01/17/2023 1:55 PM RADIATION DOSE METRICS: Total DLP (mGy-cm): 236.21 FINDINGS: Lungs: There is a 1 cm spiculated mass in the left lower lobe anteriorly (series 4, image 40) which was not present on the prior CT. Pleural spaces: Unremarkable. No pneumothorax. No pleural effusion. Heart: Unremarkable. No cardiomegaly. No pericardial effusion. Lymph nodes: Unremarkable. No enlarged lymph nodes. Vasculature: Unremarkable. No aortic aneurysm. Diaphragm: Right lower lobe nodule just along diaphragmatic surface has not changed. Gallbladder and bile ducts: Dense gallbladder sludge. Bones/joints: Diffuse degenerative changes in the thoracic spine with slightly accentuated dorsal kyphosis. Soft tissues: Unremarkable. Other findings: Emphysema and granulomatous disease as previously. Two spiculated right-sided hilar calcified masses are again seen. These have not definitely changed. CT/CT chest wo con [id number] IMPRESSION: There is a 1 cm spiculated mass in the left lower lobe anteriorly (series 4, image 40) which was not present on the prior CT. Given the interval change in comparison to January 17, 2023 would consider malignancy and image guided biopsy.
== END 2023-09-17 14:22 | disposition home or self-care (01) ==
PROVIDERS: PCP Family Medicine; Visit Provider Internal Medicine Pulmonary Disease
DX: R93.89 Abnormal findings on diagnostic imaging of other specified body structures (principal); R91.1 Solitary pulmonary nodule; R91.8 Other nonspecific abnormal finding of lung field
CPT/HCPCS: 71250

== ENCOUNTER → 2023-09-19 11:21 | Outpatient (BNVA) | payer MEDICARE, SELFPAY | PROVIDERS: PCP Family Medicine; Visit Provider Internal Medicine Pulmonary Disease | DX: R91.1 Solitary pulmonary nodule (principal); J44.9 Chronic obstructive pulmonary disease, unspecified; Z77.120 Contact with and (suspected) exposure to mold (toxic); J47.9 Bronchiectasis, uncomplicated; J82.83 Eosinophilic asthma; Z77.22 Contact with and (suspected) exposure to environmental tobacco smoke (acute) (chronic) | CPT/HCPCS: 99214 ==

== ENCOUNTER 2023-09-24 05:45 | Day surgery (SDC) | payer MEDICARE, SELFPAY ==
[2023-09-24] VITALS (13 sets, daily range): BP systolic 131–161; BP diastolic 58–94; PULSE 68–87; RESP 12–21; TEMP 36.1–36.5; O2SAT 92–99; BMI 21.6
[2023-09-24] MEDS: sodium chloride 0.9% 1,000 ML 30 ML IV (06:35)
--- NOTE | 2023-09-24 07:01 | W.PM.OPSUD ---
Surgery/Procedure H&P Update DATE OF PROCEDURE: September 24, 2023 DATE H&P PERFORMED: 09/19/23 H&P UPDATE INFORMATION: I have reviewed H&P completed within last 30 days, I have examined patient prior to procedure and No changes to prior documentation CHANGES TO PREVIOUS DOCUMENTATION: none PREOP DIAGNOSIS: Suspected malignancy PRIMARY INDICATION FOR PROCEDURE: CT chest 09/19/2023 There is a 1 cm spiculated mass in the left lower lobe anteriorly which was not present on the prior CT.? Given the interval change in comparison to January 17, 2023 would consider malignancy and image guided biopsy. PLANNED PROCEDURE: Operation Date: 09/24/23 07:00 Proposed Procedures p ION robotic bronch with EBUS, 97006, 79421, 90112, 21666, 93036, 05070, 37198, 63895, 23344, 24781, 12914, 41636, 21312,R91.8(Not Applicable) - Andrew Bueno MD s Ebus(Not Applicable) - Andrew Bueno MD Related Problem List Diagnoses (1) Lung nodule, solitary:
--- NOTE | 2023-09-24 07:19 | SC_ITS ---
WS: [id number] C-ARM RADIOGRAPHS CHEST; 4 IMAGES HISTORY: LLL NODULE COMPARISON: None available. C ARM imaging during bronchoscopy and lung biopsy. IMPRESSION: Intraprocedural imaging during lung biopsy and bronchoscopy.
[2023-09-24] MEDS: lidocaine 1% INJ 10 mL (per mL) XX (07:25)
--- NOTE | 2023-09-24 07:34 | ANES.PREANE2 ---
Pre-Anesthetic Assessment Height/Weight: Height 1.6 m Weight 55.338 kg Temp Pulse Resp BP Pulse Ox O2 Del Method 97.7 F 76 16 152/77 99 Room Air 09/24/23 06:15 09/24/23 06:57 09/24/23 06:55 09/24/23 06:15 09/24/23 06:55 09/24/23 06:55 Preop Diagnosis: Suspected malignancy Operation Date: 09/24/23 07:00 Proposed Procedures p ION robotic bronch with EBUS, 96923, 17844, 33017, 62505, 49372, 14067, 83369, 54288, 95278, 02723, 24230, 12253, 64380,R91.8(Not Applicable) - Andrew Bueno MD s Ebus(Not Applicable) - Andrew Bueno MD Familial anesthetic complications: none Was Beta Nael taken within 24 hours: N/A Was Clonidine taken within 24 hours: N/A Last intake: Intake Last Liquid Date 09/23/23 Last Liquid Time 22:00 Last Solid Date 09/23/23 Last Solid Time 21:00 Social No alcohol and No tobacco Exam alert, oriented x 3, clear to auscultation bilaterally and regular rate & rhythm Airway Submandibular: within normal limits Cervical ROM: within normal limits Mallampati: Class II Pulmonary Asthma and Chronic Obstructive Pulmonary Disease Lung nodule GI Gastroesophageal Reflux Disease Neuropsych Headache Anesthetic Plan ASA status: 3 Anesthesia: General Medications/Allergies Home Medications Medication Instructions Recorded Confirmed Last Taken Type fluoxetine 20 mg capsule 20 mg PO BID 01/04/20 09/24/23 09/23/23 History sumatriptan succinate 100 mg tablet 100 mg PO PRN PRN Migraine Headache 01/04/20 09/24/23 09/22/23 History albuterol sulfate 90 mcg/actuation 1 puff inhalation DAILY rx filled 07/04/20 09/24/23 09/24/23 History aerosol inhaler (ProAir HFA) on 05/12/21 90d/s for 1 puff daily fluconazole 150 mg tablet 150 mg PO ONCE rx filled on 06/22/21 09/24/23 09/23/23 History 06/15/21-not picked up from pharmacy ondansetron HCl 4 mg tablet 4 mg PO Q8H PRN Nausea And Vomiting 06/22/21 09/24/23 09/22/23 History (Zofran) cholecalciferol (vitamin D3) 25 25 mcg PO DAILY 12/18/22 09/24/23 09/23/23 History mcg (1,000 unit) capsule coenzyme Q10 75 mg capsule (Ultra 75 mg PO DAILY 12/18/22 09/24/23 09/23/23 History CoQ10) famotidine 20 mg tablet 20 mg PO DAILY 12/18/22 09/24/23 09/23/23 History magnesium 250 mg tablet 250 mg PO DAILY 12/18/22 09/24/23 09/23/23 History montelukast 10 mg tablet 10 mg PO DAILY 12/18/22 09/24/23 09/23/23 History (Singulair) multivitamin 1 tab PO DAILY 12/18/22 09/24/23 09/23/23 History omeprazole 20 mg capsule,delayed 20 mg PO DAILY 12/18/22 09/24/23 09/23/23 History release guaifenesin 600 mg tablet, 600 mg PO Q12H PRN congestion #60 03/26/23 09/24/23 09/23/23 Rx extended release 12 hr (Mucinex) tabs hydroxyzine HCl 10 mg tablet 10 mg PO TID PRN Anxiety 03/26/23 09/24/23 09/23/23 History riboflavin (vitamin B2) 25 mg 25 mg PO DAILY PRN Migraine 03/26/23 09/24/23 3 Months Ago History tablet Headache ~06/24/23 ACAPELLA #1 ea 04/04/23 09/24/23 09/19/23 Rx mirtazapine 15 mg tablet 15 mg PO DAILY 07/26/23 09/24/23 09/23/23 History verapamil 180 mg tablet,extended 360 mg PO BEDTIME 07/26/23 09/24/23 09/23/23 History release Advair Diskus 250 mcg-50 mcg/dose 1 inh inhalation BID #60 ea 09/09/23 09/24/23 09/24/23 Rx powder for inhalation (fluticasone propion-salmeterol) rcyphnt-mewykqaxslpqa-hdeeotsf 250 1 tab PO Q6H PRN Migraine Headache 09/20/23 09/24/23 09/22/23 History mg-250 mg-65 mg tablet (Excedrin Migraine) nystatin 100,000 unit/mL oral 1 ml PO DAILY PRN thrush 09/20/23 09/24/23 2 Weeks Ago History suspension ~09/10/23 Allergies Allergy/AdvReac Type Severity Reaction Status Date / Time fluticasone Allergy Mild ADR/ALGY-Pa Verified 09/24/23 06:06 [From Advair Diskus] lpitations salmeterol Allergy ADR/ALGY-Pa Verified 09/24/23 06:06 [From Advair Diskus] lpitations umeclidinium AdvReac Severe Unable to Verified 09/24/23 06:06 [From Incruse Ellipta] urinate Current Medications Generic Name Dose Route Start Last Admin Trade Name Freq PRN Reason Stop Dose Admin Sodium Chloride 1,000 mls @ 30 mls/hr 09/24/23 06:15 09/24/23 06:35 Sodium Chloride 0.9% IV 09/25/23 06:14 30 mls/hr .Q24H ELVIA Administration PFSH Anesthesia Medical History Chronic cystitis Mixed axonal-demyelinating neuropathy Thrombocytosis Surgical History H/O oral surgery H/O wrist surgery Family History Father Stroke Heart disease Hypercholesterolemia Hypertension Mother Psychiatric illness Diabetes Heart disease Social History Smoking and tobacco/nicotine status: never used tobacco/nicotine Second hand smoke exposure: Yes Alcohol intake: never Substance/Drug Use: never Lives independently: Yes Household members: none Marital status: / Current occupational status: unemployed Do you think of yourself as: Straight/Heterosexual Current gender identity: Female Data Anesthesia Cardiac Studies: Echocardiogram Ultrasound 07/05/20
--- NOTE | 2023-09-24 08:09 | XR_ITS ---
WS: [id number] Exam: XR chest 1V portable [id number] Date/Time of Exam: 09/24/2023 8:09 AM Reason For Exam: POST ION Comparison 04/11/2012. Mild bibasal infiltrates noted. Plaque atelectasis in the RIGHT lower lung zone. Normal cardiomediast inal silhouette. No pleural effusion or pneumothorax. Bony structures are intact. IMPRESSION: 1. Mild bibasilar infiltrates with associated plaque atelectasis. Recommendations: Short-term follow-up chest radiograph might be considered for follow-up.
--- NOTE | 2023-09-24 08:12 | P.OP_ITS ---
Operative Report Date of procedure: September 24, 2023 Pre-op diagnosis: CT 09/17/2023: New 1 cm spiculated nodule left lower lobe anteriorly-suspicious for malignancy Post-op diagnosis: granuloma Procedure done: 44637 Dx Bronchoscope w/Washings or airway inspection 37240 Dx Bronchoscope w/BAL 26378 Bronch with computer image guided Navigational Bronchoscopy 01289 Bronchoscopy w/Transbronchial lung biopsy(s), single lobe 86377 Bronchoscopy w/Transbronchial needle aspiration biopsy(s), tracheal, main stem, and/or lobar bronchus 04526 Bronchoscopy w/ therapeutic aspiration of the tracheobronchial tree (clearance of airway secretions, removal of mucus plugs) 32840 EBUS Diag or Interven Peripheral lesion (radial EBUS) Surgeon: Andrew Bueno MD Brief History: 72-year-old itaexc-elj-djrwla but significant secondhand exposure-has significant centrilobular emphysema, 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 Does not use albuterol inhaler regularly. Breathing is good.? CT chest 01/21/2023 showed calcified granulomatous disease with calcified mediastinal and hilar lymph nodes.? Patient reported suffering from valley fever when she was in [place].? There are calcified right hilar spiculated nodule or mass right upper lobe and right lower lobe measuring approximately 2 cm.? Recommended correlation with history of Granulomatous disease.? There was another noncalcified right lower lobe nodule along Diaphragm measuring 9 mm. There is bilateral perihilar traction bronchiectasis right greater than left. A 6-month follow-up CT which was performed 09/17/2023:Right lower lobe nodule just along diaphragmatic surface has not changed. Two spiculated right-sided hilar calcified masses are again seen. These have not definitely changed. However there is a 1 cm spiculated mass in left lower lobe anteriorly which was not present on prior CT January 2023 and given the interval change in comparison to January 17, 2023 would consider malignancy and image guided biopsy. Today she comes for Ion robotic navigational bronchoscopy guided biopsy of left lower lobe nodule as well as endobronchial surveillance of hilar/mediastinal lymph nodes. Procedure: 55037 Dx Bronchoscope w/Washings or airway inspection 34624 Dx Bronchoscope w/BAL 74840 Bronch with computer image guided Navigational Bronchoscopy 09219 Bronchoscopy w/Transbronchial lung biopsy(s), single lobe 45506 Bronchoscopy w/Transbronchial needle aspiration biopsy(s), tracheal, main stem, and/or lobar bronchus 14251 Bronchoscopy w/ therapeutic aspiration of the tracheobronchial tree (clearance of airway secretions, removal of mucus plugs) 00914 EBUS Diag or Interven Peripheral lesion (radial EBUS) Indication: Description of the procedure: The procedure was explained to the patient and the consent was obtained. The patient was brought to the OR. Anesthesia: The patient underwent endotracheal intubation for general anesthesia. Local anesthesia: The distal trachea-Rosendo, right and left mainstem bronchi were anesthetized with 1% lidocaine, 3 mL. Following induction of general anesthesia, the flexible bronchoscope was advanced through the ET tube. The lower trachea mucosa appeared normal, no endotracheal lesion was seen. The rosendo was sharp. The rosendo, the right and left mainstem bronchi are anesthetized with 1% lidocaine. In a systematic manner bilateral bronchial tree was then examined. The bronchoscope was then introduced into the right mainstem bronchus. The right upper lobe, right middle lobe and right lower lobe bronchi were examined up to the third subsegmental level and no abnormalities were identified.Mucosa appeared normal with no endobronchial lesion, active bleeding or mucous plug.There were clear as well as some mucus secretions which were suctioned right away.(66690). The bronchoscope was advanced into the left mainstem bronchus. The mucosa appeared normal with no endobronchial lesions. The left upper lobe, lingula and left lower lobe bronchi were examined up to the third subsegmental level and no abnormalities were identified. Mucosa appeared normal with no endobronchial lesion, active bleeding or mucous plug. There were some mucus secretions in left lower lobe-which were suctioned right away.(49763) After initial inspection as well as airway clearance with flexible bronchoscope(04065), ION robotic assisted navigational bronchoscope (44757) was introduced-and internal airways were registered by collecting various data points using [employer] software. Once the Real-time bronchoscopic views were aligned with [employer] software plan created based on preprocedure CT-the bronchoscope was driven to the distal left lower lobe anterior basal airway and left lower lobe lesion was accessed. I used radial EBUS (53197), under the fluoroscopy guidance -however there was no strong signal-but there is no other alternate airway to this distal left lower lobe anterior basal segment lesion. Hence using the navigational software guidance-we were able to obtain biopsies using fine-needle and forceps.There was some evidence of grade 2 bleeding-cold saline was instilled. BAL was also taken from left lower lobe anterior basal segment. After making sure there is no active bleeding navigational bronchoscope was retracted and introduced Endobronchial ultrasound EBUS (53834). With the help of EBUS, Hilar and mediastinal were scanned and did not notice any suspicious lymph nodes. After making sure there is no active bleeding bronchoscope was retracted and procedure terminated. Samples: A. Left lower lobe lesion 1. Total of 4 passes were made using needle aspiration(36324); first pass was sent for rapid onsite evaluation-pathology reported seeing histiocytes and possible granuloma; negative for malignancy; rest of the material sent for histopathology. 2. Targeting the same area 4 passes were made using forceps (59169); first pass was sent for rapid onsite evaluation-pathology reported seeing Bronchial epithelial cells; negative for malignancy; rest of the material sent for histopathology. 3. Bronchoscope was wedged at the entrance of the anterior basal segment of left lower lobe, 25 mL of saline was instilled and returned 13 mL of bronchoalveolar lavage (65361). The fluid was mixed with blood and specks of tissue. Samples for cell count, cytology, cultures, AFB cultures, fungal cultures Complications: None.The patient was extubated and brought to the PACU in stable condition. Postprocedure chest x-ray: There is no evidence of pneumothorax Disposition: Patient can be discharged home in stable condition. Pt is aware that I am going to call them to update final biopsy results once available. Related Problem List Diagnoses (1) Lung nodule, solitary:
[2023-09-24 08:38] LABS: Apprearance, Bronch Wash Hazy (CLEAR); Color, Bronc Wash Slight Pink; Total Cells Counted Bronch 200
[2023-09-24 08:39] LABS: Bronch Source LEFT LOWER LOBE BAL
--- NOTE | 2023-09-24 09:40 | PC.NURSE ---
Dr Bueno at bedside to evaluate patient. Sp02 remaining 88%-93% on RA. Frequent teaching to cough and deep breathing. Patient denies SOB or chest pain. Friend at bedside for teaching. Dr Bueno okay patient to discharge if continues to maintain Sp02 greater than 88%. CXR neg for pneumo. Patient to return to ER if starts having chest pain, SOB, coughing upo blood, fever > 100.4, or Sp02 < 88%. Verbalized understanding. Eating ice chips, no NV at this time.
[2023-09-24 10:22] LABS: Cyto Order Verification Order Verified
--- NOTE | 2023-09-24 13:39 | ANE.PACU2 ---
Inpatient post-anesthesia follow up: Airway intact: Yes Vital signs: Temperature 97.0 F Pulse Rate 68 Respiratory Rate 18 Blood Pressure 131/58 Pulse Oximetry 92 Oxygen Delivery Me thod Room Air Oxygen Flow Rate 3 Fraction of Inspir ed Oxygen Hydration adequate: Yes Nausea and vomiting: No Pain level: 2 Mental status: Baseline
== END 2023-09-24 10:28 | disposition home or self-care (01) ==
PROVIDERS: PCP Family Medicine; Visit Provider Internal Medicine Pulmonary Disease
PROC: 0BJ08ZZ Inspection of Tracheobronchial Tree, Via Natural or Artificial Opening Endoscopic (ICD-10-PCS; CPT 31622; principal; 2023-09-24 07:00)
PROC: BB4BZZZ Ultrasonography of Pleura (ICD-10-PCS; 2023-09-24 07:00)
DX: R91.1 Solitary pulmonary nodule (principal); J44.9 Chronic obstructive pulmonary disease, unspecified; K21.9 Gastro-esophageal reflux disease without esophagitis; Z77.22 Contact with and (suspected) exposure to environmental tobacco smoke (acute) (chronic); Z77.120 Contact with and (suspected) exposure to mold (toxic); J47.9 Bronchiectasis, uncomplicated
CPT/HCPCS: 31624; 31627; 31628; 31629; 31645; 31654; 71045; 76000; 80503; 87015; 87070; 87102; 87116; 87205; 87206; 87801; 88112; 88305; 88312; 88342; 89050; 94640; J1100; J2371; J2405; J2704; J2710; J3010; J3490; J7030

== ENCOUNTER 2024-01-15 14:16 | Outpatient (CLI) | payer MEDICARE, SELFPAY ==
--- NOTE | 2024-01-15 14:22 | CT_ITS ---
WS: [id number] CT chest wo con [id number] HISTORY: Lung nodule TECHNIQUE: Axial imaging performed through the thorax. Coronal and sagittal reformats are submitted. All CT scans at [facility] use at least one of these dose optimization techniques: automated exposure control; mA and/or kV adjustment per patient size (includes targeted exams where dose is mat ched to clinical indication); or iterative reconstruction. CONTRAST: None DLP: 237.63 mGy.cm COMPARISON: 09/17/2023, 01/17/2023 Lungs and central airway: Severe centrilobular and bullous emphysema. Recently described spiculated n odule in the LEFT lower lobe on 09/17/2023 has nearly completely resolved. There is minimal opacifica tion and scarring at the site previously described. Reidentified at the partially calcified and spicu lated nodules in the RIGHT infrahilar region and also along the RIGHT upper lobe fissure. These have been present on prior studies without increase in size. Benign scattered granulomata. This is unchang ed in size. There are numerous bilateral calcified granulomata. Pleura: Normal. No pleural effusion. Heart and pericardium: Normal size heart with no pericardial effusion. Mediastinum and shoshana: Benign partially calcified mediastinal and hilar lymph nodes. No new or increas ing size of lymphadenopathy is appreciated on this unenhanced exam. Vessels: Mild atherosclerosis aorta. No aneurysm. Normal size pulmonary artery. Chest wall and lower neck: No soft tissue masses. Upper abdomen: Cholelithiasis. No evidence for acute cholecystitis. There is marked fecal retention a nd constipation in the visualized colon at the upper abdomen. No adrenal mass. Osseous structures: RIGHT curvature thoracic spine and increase in kyphosis. No destructive bone lesi ons. IMPRESSION: 1. Almost complete resolution of the spiculated nodule recently described in the RIGHT lower lobe. N ear complete resolution consistent with a benign nodule. 2. Stable partially calcified spiculated masses in the central RIGHT lung. Probably related to prior granulomatous disease. 3. Advanced centrilobular emphysema. 4. Cholelithiasis without acute cholecystitis.
== END 2024-01-15 14:17 | disposition home or self-care (01) ==
LOC: RAD 14:16
PROVIDERS: PCP Family Medicine; Visit Provider Internal Medicine Pulmonary Disease
DX: R91.1 Solitary pulmonary nodule (principal); R91.8 Other nonspecific abnormal finding of lung field; J43.2 Centrilobular emphysema
CPT/HCPCS: 71250

== ENCOUNTER → 2024-03-25 10:47 | Outpatient (BNVA) | payer MEDICARE, SELFPAY | PROVIDERS: PCP Family Medicine; Visit Provider Internal Medicine Pulmonary Disease | DX: R91.1 Solitary pulmonary nodule (principal); J44.9 Chronic obstructive pulmonary disease, unspecified; Z77.120 Contact with and (suspected) exposure to mold (toxic); J45.30 Mild persistent asthma, uncomplicated; J47.9 Bronchiectasis, uncomplicated | CPT/HCPCS: 99214 ==

== ENCOUNTER 2024-04-17 14:15 | Outpatient (CLI) | payer MEDICARE, SELFPAY ==
--- NOTE | 2024-04-17 14:17 | MM_ITS ---
WS: [id number] Bilateral screening 3D tomosynthesis digital mammogram, 04/17/2024 Clinical Data: SCREENING Comparison: 04/16/2023, 04/13/2022, 07/01/2020, 12/23/2015, 11/10/2015, 12/17/2013, 02/23/2009. Findings: The breast parenchymal pattern shows heterogeneous density. No spiculated masses or clustered calcifi cations are seen. There are no secondary signs of carcinoma. There are 2 regions of coarse calcificat ions in the upper outer quadrant of the left breast unchanged. MM/[place] [id number] Impression: 1. Negative bilateral mammogram unchanged. 2. Recommend annual screening mammograms. BIRADS: 1-Negative FOLLOW UP: 1 Year Follow-up The CAD carver and checkerer specials was used.
== END 2024-04-17 14:16 | disposition home or self-care (01) ==
LOC: RAD 14:15
PROVIDERS: PCP Family Medicine; Visit Provider Family Medicine
DX: Z12.31 Encounter for screening mammogram for malignant neoplasm of breast (principal)
CPT/HCPCS: 77063; 77067

== ENCOUNTER 2024-05-12 14:48 | Outpatient (CLI) | payer MEDICARE, SELFPAY ==
--- NOTE | 2024-05-12 14:57 | XR_ITS ---
WS: [id number] DEXA (DUAL ENERGY X-RAY ABSORPTIOMETRY) Bone mineral density was performed using a Revolution Prep machine. HISTORY: Postmenopausal COMPARISON: 04/13/2022 Lumbar spine BMD (L1-L4): 0.967 g/cm2 T score: -1.8 Z score: 0.3 Total hip BMD: Left: 0.751 g/cm2. T score: -2.0 Z score: 0.0 Right: 0.763 g/cm2. T score: -1.9 Z score: 0.1 10 year probability of a major osteoporotic fracture is 31.8%. Compared to the prior study from 04/13/2022. Lumbar spine bone mineral density has decreased by 6.0%. Bilateral hips bone mineral density has increased by 5.9%. XR/XR DEXA axial skeleton* 34984 IMPRESSION: OSTEOPENIA based upon the WHO classification for females. Significant decrease in bone mineral density since the prior study. Significant increase in bone mineral density within the hips.
== END 2024-05-12 14:49 | disposition home or self-care (01) ==
LOC: RAD 14:51
PROVIDERS: PCP Family Medicine; Visit Provider Physician Assistant
DX: Z78.0 Asymptomatic menopausal state (principal); M85.80 Other specified disorders of bone density and structure, unspecified site
CPT/HCPCS: 77080

== ENCOUNTER 2025-04-20 14:31 | Outpatient (CLI) | payer MEDICARE, SELFPAY ==
--- NOTE | 2025-04-20 14:33 | MM_ITS ---
WS: [id number] BILATERAL SCREENING DIGITAL TOMOSYNTHESIS MAMMOGRAM WITH CAD HISTORY: SCREENING COMPARISON: 04/17/2024, 04/16/2023 Bilateral CC and MLO views with tomosynthesis and synthetic mammography submitted. Computer aided detection analyzed. Breast composition: The breasts are heterogeneously dense, which may obscure small masses. No suspicious masses, microcalcifications or architectural distortion. Coarse benign calcifications in the LEFT breast. There are additional smaller benign scattered calcifications within each breast. MM/MM scr tomosynthesis [id number] IMPRESSION: BI-RADS: 2 - Benign FOLLOW UP: 1 Year Follow-up
== END 2025-04-20 14:32 | disposition home or self-care (01) ==
LOC: RAD 14:32
PROVIDERS: PCP Family Medicine; Visit Provider Family Medicine
DX: Z12.31 Encounter for screening mammogram for malignant neoplasm of breast (principal); R92.333 Mammographic heterogeneous density, bilateral breasts; R92.1 Mammographic calcification found on diagnostic imaging of breast
CPT/HCPCS: 77063; 77067